=== PATIENT | male | born 1970 | race Caucasian/White ===

== ENCOUNTER 2017-01-12 18:37 | Emergency (ER) | payer OTHER ==
[2017-01-12 19:03] VITALS: BP 121/77; TEMP 98.5; O2SAT 95
[2017-01-12] MEDS ORDERED: SUCRALFATE 1 GM TAB PO ONE (19:22)
[2017-01-12] MEDS ORDERED: ALUMINUM & MAGNESIUM HYDROXIDE 30 ML UD PO ONE (19:22)
[2017-01-12] MEDS ORDERED: ONDANSETRON ODT 8 MG TAB SL SCH (19:30)
--- NOTE | 2017-01-12 20:16 | RAD ---
EXAM: Acute abdominal series. INDICATION: Abdominal pain, acute. COMPARISON: None. FINDINGS: Cardiac silhouette: Unremarkable. Sharon: Unremarkable. Lobar consolidation: None. Pleural effusion: None. Pneumothorax: None. Other: None. Intraperitoneal free air: Negative. Bowel: No dilated loops of small bowel or air-fluid levels. Bones: There is chronic deformity of the right femoral head with a shallow right acetabulum Other: None. IMPRESSION: 1. Nonspecific, nonobstructed bowel gas pattern. Electronically signed by: Siddharth East MD 01/12/2017 8:15 PM CDT
--- NOTE | 2017-01-12 21:40 | ED.PDOC ---
History of Present Illness - General Chief Complaint: GI Problem Stated Complaint: N/V/D Time Seen by Provider: 01/12/17 19:16 Source: patient Exam Limitations: no limitations - History of Present Illness Initial Comments: the patient is a 46-year-old male presenting to the emergency room secondary to epigastric discomfort along with some nausea and mild diarrhea starting this morning. The patient had similar symptoms about 2-3 weeks ago and underwent a course of ciprofloxacin and Flagyl. He did get better and was good for approximately 1 week before the symptoms came back today. He does have a history of gastroesophageal reflux disease. No fevers. No syncopal or near syncope. No chest pain. No rash. No prior recent antibiotic use. No blood in the stool. No blood in the vomitus. He feels significantly better after throwing up once today. Appetite has been poor today but his oral intake had been fairly normal before that. Timing/Duration: unsure Severity: moderate Improving Factors: other - vomiting Worsening Factors: nothing Associated Symptoms: loss of appetite, malaise, nausea/vomiting Allergies/Adverse Reactions: Allergies NO KNOWN ALLERGY Allergy (Verified 05/02/13 14:19) Home Medications: Ambulatory Orders Ondansetron [Zofran Odt] 4 mg PO Q4H PRN #10 tab 01/12/17 Sucralfate Tab [Carafate Tab] 1 gm PO QID #120 tab 01/12/17 Review of Systems - Review of Systems Constitutional: States: malaise EENTM: States: no symptoms reported Respiratory: States: no symptoms reported Cardiology: States: no symptoms reported Gastrointestinal/Abdominal: States: diarrhea, nausea, vomiting Genitourinary: States: no symptoms reported Musculoskeletal: States: no symptoms reported Skin: States: no symptoms reported Neurological: States: no symptoms reported Endocrine: States: no symptoms reported All other Systems: No Change from Baseline Past Medical History (General) - Patient Medical History Hx Seizures: No Hx Stroke: No Hx Dementia: No Hx Asthma: No Hx of COPD: No Hx Cardiac Disorders: No Hx Congestive Heart Failure: No Hx Pacemaker: No Hx Hypertension: Yes Hx Thyroid Disease: No Hx Diabetes: No Hx Gastroesophageal Reflux: No Hx Renal Disease: No Hx of HIV: No Hx MRSA: No - Vaccination History Hx Influenza Vaccination: No - Social History Hx Tobacco Use: No - Triage Comment ED Triage Comment: Pt states he started having abdominal pain earlier this afternoon and diarrhea and has vomited x 1 here in the ER. Had low grade temp earlier but does not have fever at this time. Family Medical History - Family History Mother Family History: Unknown Physical Exam - Physical Exam General Appearance: Alert, Comfortable, No apparent distress Eye Exam: bilateral normal Ears, Nose, Throat: hearing grossly normal, normal ENT inspection, normal pharynx Neck: non-tender, full range of motion, supple Respiratory: chest non-tender, lungs clear, normal breath sounds, no respiratory distress, no accessory muscle use Cardiovascular/Chest: normal peripheral pulses, regular rate, rhythm, no edema Peripheral Pulses: radial,right: 2+, radial,left: 2+, dorsalis pedis,right: 2+, dorsalis pedis,left: 2+ Gastrointestinal/Abdominal: normal bowel sounds, non tender, soft Rectal Exam: deferred Back Exam: normal inspection, no CVA tenderness, no vertebral tenderness Extremity: normal range of motion, non-tender, normal inspection, no pedal edema , normal capillary refill Neurologic: alert, normal mood/affect, oriented x 3 Skin Exam: normal color Comments: Vital Signs - 24 hr 01/12/17 01/12/17 18:58 19:03 Temperature 98.5 F Pulse Rate [ 80 montior] Respiratory 18 18 Rate Blood Pressure 121/77 [Left Arm] O2 Sat by Pulse 95 Oximetry Progress - Progress Progress: 01/12/17 21:41 the patient is a 46-year-old male who presented to the emergency room secondary to gastrointestinal symptoms. I do suspect that the patient has significant gastritis still and will be placed on Carafate 4 times daily for the next few weeks. He is to increase his Protonix to twice a day for the next 2 weeks. He is also to carry some Maalox with him for as needed use. He is to take one dose of milk of magnesia tonight or tomorrow to help with some constipation seen on the x-ray. Lab work is reassuring. X-rays otherwise benign. He needs to keep well-hydrated as there is some very mild dehydration present. Stool studies are being performed but results are of course not back yet. He needs to set up a appointment with his primary care doctor later this week to get those results. He also needs to be reevaluated at that time. He is return to the emergency room if he has worsening of symptoms. He will also be written for some Zofran for as needed use to control any further vomiting. - Results/Orders Results/Orders: Laboratory Tests 01/12/17 01/12/17 01/12/17 19:25 19:30 19:30 WBC 8.9 RBC 5.35 Hgb 16.1 Hct 46.8 MCV 87.5 MCH 30.1 MCHC 34.4 RDW 13.3 Plt Count 178 MPV 10.6 H Absolute Neuts (auto) 7.90 H Absolute Lymphs (auto) 0.40 L Absolute Monos (auto) 0.50 Absolute Eos (auto) 0.00 Absolute Basos (auto) 0.00 Neutrophils % 89.0 H Lymphocytes % 4.7 L Monocytes % 5.8 Eosinophils % 0.4 L Basophils % 0.1 Sodium 138 Potassium 4.3 Chloride 104 Carbon Dioxide 29 Anion Gap 9.3 L BUN 22 H Creatinine 1.31 H BUN/Creatinine Ratio 16.8 Random Glucose 119 H Serum Osmolality 280.1 Calcium 9.1 Total Bilirubin 1.1 H AST 24 ALT 37 Alkaline Phosphatase 68 Creatine Kinase 168 CK-MB (CK-2) 2.7 CK-MB (CK-2) % Not Reportable Troponin I < 0.02 Serum Total Protein 7.4 Albumin 4.6 Globulin 2.8 Albumin/Globulin Ratio 1.6 Amylase 78 Lipase 25 Urine Color Yellow Urine Appearance Clear Urine pH 5.5 Ur Specific Gary 1.025 Urine Protein 30 Urine Glucose (UA) Negative Urine Ketones Trace Urine Blood Trace-lysed H Urine Nitrite Negative Urine Bilirubin Negative Urine Urobilinogen 0.2 Ur Leukocyte Esterase Negative Urine RBC 0-1 Urine WBC 0-1 Ur Epithelial Cells 0 Amorphous Sediment Trace Urine Bacteria Rare Urine Mucus Trace Departure - Departure Clinical Impression: Gastritis Constipation Qualifiers: Constipation type: other constipation type Qualified Code(s): K59.09 - Other constipation Disposition: Discharge to Home or Self Care Condition: Fair Departure Forms: ED Discharge - Pt. Copy, Patient Portal Self Enrollment Instructions: DI for Gastritis, DI for Constipation Diet: bland diet Activity: increase activity as tolerated Referrals: Brian Arvizu III, MD [Primary Care Provider] - 1-5 Days Prescriptions: Ondansetron [Zofran Odt] 4 mg PO Q4H PRN #10 tab PRN Reason: Vomiting Sucralfate Tab [Carafate Tab] 1 gm PO QID #120 tab Home Medications: Ambulatory Orders Ondansetron [Zofran Odt] 4 mg PO Q4H PRN #10 tab 01/12/17 Sucralfate Tab [Carafate Tab] 1 gm PO QID #120 tab 01/12/17 Additional Instructions: the patient is a 46-year-old male who presented to the emergency room secondary to gastrointestinal symptoms. I do suspect that the patient has significant gastritis still and will be placed on Carafate 4 times daily for the next few weeks. He is to increase his Protonix to twice a day for the next 2 weeks. He is also to carry some Maalox with him for as needed use. He is to take one dose of milk of magnesia tonight or tomorrow to help with some constipation seen on the x-ray. Lab work is reassuring. X-rays otherwise benign. He needs to keep well-hydrated as there is some very mild dehydration present. Stool studies are being performed but results are of course not back yet. He needs to set up a appointment with his primary care doctor later this week to get those results. He also needs to be reevaluated at that time. He is return to the emergency room if he has worsening of symptoms. He will also be written for some Zofran for as needed use to control any further vomiting.
== END 2017-01-12 22:00 | disposition home or self-care (01) ==
LOC: ER 18:37
DX: K29.70 Gastritis, unspecified, without bleeding (principal); K59.09 Other constipation; I10 Essential (primary) hypertension

== ENCOUNTER → 2017-11-03 | Outpatient (CLI) | payer BC | LOC: GMAL 10:50 | PROVIDERS: ATTEND Family Medicine | DX: Z00.00 Encounter for general adult medical examination without abnormal findings (principal); E83.42 Hypomagnesemia ==

== ENCOUNTER → 2018-11-04 | Outpatient (CLI) | payer BC | LOC: GMAL 12:29 | PROVIDERS: ATTEND Family Medicine | DX: Z00.01 Encounter for general adult medical examination with abnormal findings (principal) ==